=== PATIENT | female | born 1975 | race Caucasian/White ===

== ENCOUNTER 2020-10-18 13:14 | Emergency (ER) | payer BC ==
[~2020-10-18] VITALS: Ht 162.6 cm; Wt 100.0 kg
[2020-10-18 13:57] VITALS: BP 129/81
[2020-10-18] MEDS ORDERED: HYDROcodone/APAP 5/325MG 1 TAB TABLET PO ONE (14:00)
--- NOTE | 2020-10-18 14:02 | PHYS DOC ---
General Adult EDM: Chief Complaint: ANKLE PROBLEM HPI: HPI: 45-year-old female presents with left ankle pain. The patient went to step off her back steps last night while it was dark and she rotated her ankle. She fell completely to the ground. She only complains of pain in the left ankle. She cannot put any weight on it. She has no change in sensation. Review of Systems: Review of Systems: Constitutional: Denies fever or chills Eyes: Denies change in visual acuity HENT: Denies nasal congestion or sore throat Respiratory: Denies cough or shortness of breath Cardiovascular: Denies chest pain or edema GI: Denies abdominal pain, nausea, vomiting, bloody stools or diarrhea : Denies dysuria Musculoskeletal: Left ankle pain Integument: Denies rash Neurologic: Denies headache, focal weakness or sensory changes Endocrine: Denies polyuria or polydipsia Lymphatic: Denies swollen glands Psychiatric: Denies depression or anxiety Allergies: Allergies: Allergies Coded Allergies Type Severity Reaction Last Updated Verified No Known Drug Allergies 10/18/20 No Physical Exam: PE: Constitutional: Well developed, well nourished, obese, no acute distress, non- toxic appearance. [] HENT: Normocephalic, atraumatic, bilateral external ears normal, oropharynx moist, no oral exudates, nose normal. [] Eyes: PERRLA, EOMI, conjunctiva normal, no discharge. [] Neck: Normal range of motion, no tenderness, supple, no stridor. [] Cardiovascular:Heart rate regular rhythm, no murmur [] Lungs & Thorax: Bilateral breath sounds clear to auscultation [] Abdomen: Bowel sounds normal, soft, no tenderness, no masses, no pulsatile masses. [] Skin: Warm, dry, no erythema, no rash. [] Back: No tenderness, no CVA tenderness. [] Extremities: Left ankle with bilateral malleoli tenderness, swelling, mild ecchymosis. [] Neurologic: Alert and oriented X 3, normal motor function, normal sensory function, no focal deficits noted. [] Psychologic: Affect normal, judgement normal, mood normal. [] EKG: EKG: [] Radiology/Procedures: Radiology/Procedures: [] Impressions: Exam Date: 10/18/2020 1:40 PM XR EXAM OF ANKLE_LEFT 3V Indication: Reason: fall / Spl. Instructions: / History: . FINDINGS/ IMPRESSION: There are mildly displaced acute fractures of the medial and lateral malleoli, with mild medial displacement. Mildly displaced acute fracture of the posterior tibial plafond is also seen consistent with trimalleolar fracture. Alignment is near-anatomic. Mild widening of the lateral ankle mortise is suggested, raising suspicion for syndesmotic injury. There is diffuse soft tissue swelling around the ankle. Electronically signed by: Gustavo Guidry MD (10/18/2020 2:28 PM) [facility] DICTATED AND SIGNED BY: GUSTAVO GUIDRY MD DATE: 10/18/20 1424 CC: ELLA ROSENTHAL DO; PCP,NO ~MTH0 0 Heart Score: C/O Chest Pain: N/A Risk Factors: Risk Factors: DM, Current or recent (<one month) smoker, HTN, HLP, family history of CAD, obesity. Risk Scores: Score 0 - 3: 2.5% MACE over next 6 weeks - Discharge Home Score 4 - 6: 20.3% MACE over next 6 weeks - Admit for Clinical Observation Score 7 - 10: 72.7% MACE over next 6 weeks - Early Invasive Strategies Course & Med Decision Making: Course & Med Decision Making Pertinent Labs and Imaging studies reviewed. (See chart for details) The patient's x-ray is significant for left ankle fracture. She has fractures of both the fibula and tibia. I will give her [place] 5/325 in the emergency room as well as a prescription for home. We will place her in a posterior fiberglass splint and teach her to use crutches. I directed the patient to follow-up with orthopedics on Tuesday after the holiday. Patient states verbal understanding. She is stable for discharge at this time. [] Sindi Disclaimer: Sindi Disclaimer: This electronic medical record was generated, in whole or in part, using a voice recognition dictation system. Departure Departure: Impression: Primary Impression: Closed left ankle fracture Qualified Codes: S82.892A - Other fracture of left lower leg, initial encounter for closed fracture Disposition: HOME / SELF CARE / HOMELESS Condition: STABLE Referrals: PCP,NO (PCP) Patient Instructions: Ankle Fracture, [id number] Scripts Hydrocodone/Acetaminophen (Hydrocodone-Acetamin 5-325 mg) 1 Each Tablet 1 EACH PO Q4-6HRS PRN for PAIN, #10 TAB Prov: ELLA ROSENTHAL DO 10/18/20 ELLA ROSENTHAL DO Oct 18, 2020 14:02
[2020-10-18] MEDS ORDERED: HYDR-2759 PO (14:16)
--- NOTE | 2020-10-18 14:31 | RAD ---
Exam Date: 10/18/2020 1:40 PM XR EXAM OF ANKLE_LEFT 3V Indication: Reason: fall / Spl. Instructions: / History: . FINDINGS/ IMPRESSION: There are mildly displaced acute fractures of the medial and lateral malleoli, with mild medial displ acement. Mildly displaced acute fracture of the posterior tibial plafond is also seen consistent wit h trimalleolar fracture. Alignment is near-anatomic. Mild widening of the lateral ankle mortise is suggested, raising suspicion for syndesmotic injury. There is diffuse soft tissue swelling around th e ankle. Electronically signed by: Jermaine Guidry MD (10/18/2020 2:28 PM) [facility]
== END 2020-10-18 14:20 | disposition home or self-care (01) ==
LOC: ER 13:14
DX: S82.852A Displaced trimalleolar fracture of left lower leg, initial encounter for closed fracture (principal); W10.8XXA Fall (on) (from) other stairs and steps, initial encounter; Y93.89 Activity, other specified; Y92.89 Other specified places as the place of occurrence of the external cause; Y99.8 Other external cause status
CPT/HCPCS: 29515; 73610; 99283-25